=== PATIENT | female | born 1965 | race Caucasian/White ===

== ENCOUNTER 2018-08-04 10:24 | Emergency (ER) | payer MEDICAID ==
[~2018-08-04] VITALS: Ht 152.4 cm; Wt 42.6 kg
[2018-08-04] MEDS ORDERED: IV NORMAL SALINE 1000 ML BAG IV ONE (10:30)
[2018-08-04] MEDS ORDERED: ONDANSETRON 4 MG/2 ML VIAL IV ONE (10:30)
[2018-08-04 10:44] LABS: BASOPHILS % (AUTO) 0.6 % (0.0-2.0); EOSINOPHILS % (AUTO) 0.2 % (0.0-7.0); HEMATOCRIT 44.1 % (31.2-41.9); HEMOGLOBIN 14.6 g/dL (10.9-14.3); LYMPHOCYTES # (AUTO) 1.3 K/uL (20.0-40.0); MEAN CORPUSCULAR HEMOGLOBIN 29.9 uug (24.7-32.8); MEAN CORPUSCULAR HGB CONC 33 g/dL (32.3-35.6); MEAN CORPUSCULAR VOLUME 90.1 fL (75.5-95.3); MONOCYTES # (AUTO) 0.3 K/uL (2.0-10.0); MONOCYTES % (AUTO) 5.1 % (0.0-11.0); NEUTROPHILS # (AUTO) 4.7 K/uL (1.8-8.9); NEUTROPHILS % (AUTO) 73.1 % (38.5-71.5); PLATELET COUNT (AUTO) 171 K/uL (179-408); RED BLOOD CELL COUNT(AUTO) 4.89 MIL/uL (3.63-4.92); WHITE BLOOD COUNT (AUTO) 6.4 K/uL (3.8-11.8)
[2018-08-04] MEDS ORDERED: ONDANSETRON 4 MG/2 ML VIAL ONE (10:46)
[2018-08-04 10:52] LABS: CARBON DIOXIDE 30 mmol/L (21-32); CHLORIDE 101 mmol/L (98-107); CREATININE 0.2 mg/dL (0.6-1.3); GLUCOSE 98 mg/dL (74-106); POTASSIUM 3.8 mmol/L (3.5-5.1); UREA NITROGEN, BLOOD 12 mg/dL (7-18)
[2018-08-04 10:58] LABS: ALANINE AMINOTRANSFERASE 21 U/L (14-59); ALKALINE PHOSPHATASE 59 U/L (50-136); ASPARTATE AMINOTRANSFERASE 18 U/L (15-37); BILIRUBIN,DIRECT 0.1 mg/dL (0.0-0.2); BILIRUBIN,TOTAL 0.4 mg/dL (0.2-1.0); LIPASE 78 U/L (73-393); TOTAL PROTEIN, SERUM 7.1 g/dL (6.4-8.2)
[2018-08-04 11:18] LABS: *BILIRUBIN,URIN NEGATIVE (NEGATIVE); *BLOOD, URINE NEGATIVE (NEGATIVE); *CLARITY,URINE CLEAR (CLEAR); *COLOR,URINE YELLOW (YELLOW); *KETONES,URINE 2+ (NEGATIVE); *UROBILINOGEN,URINE 0.2 E.U./dl (NORMAL); LEUKOCYTE ESTERASE ,URINE NEGATIVE (NEGATIVE); NITRITE, URINE NEGATIVE (NEGATIVE); UGLUCOSE NEGATIVE (NEGATIVE)
[2018-08-04 11:24] LABS: BACTERIA,URINE FEW /HPF (NONE SEEN); RBC,URINE NONE SEEN /HPF (0-3); SQUAMOUS EPITHELIAL CELL,UR FEW /HPF (NONE SEEN); WBC,URINE NONE SEEN /HPF (0-3)
[2018-08-04] MEDS ORDERED: KETOROLAC TROMETHAMINE 15 MG INJ ONE (11:58)
[2018-08-04] MEDS ORDERED: KETOROLAC TROMETHAMINE 15 MG INJ IVP ONE (12:00)
--- NOTE | 2018-08-04 12:00 | NUR ---
IV removed. Catheter intact and site benign. Pressure and 4x4 gauze applied to site. No bleeding noted.
--- NOTE | 2018-08-04 12:00 | NUR ---
Patient discharged to home in stable conditon with family. Written and verbal after care instructions given. Patient verbalizes understanding of instructions. Stressed follow up with pmd or return to ER for worsening s/s.
[2018-08-04 12:02] VITALS: BP 114/73
== END 2018-08-04 12:02 | disposition home or self-care (01) ==
LOC: ER 10:24 → EDBD 10:24 → ER 12:02
DX: R11.10 Vomiting, unspecified (principal); R51 Headache; Z88.8 Allergy status to other drugs, medicaments and biological substances
CPT/HCPCS: 36415; 70450; 80048; 80076; 81001; 83690; 85025; 96361; 96374; 96375; 99284; J1885; J2405; A4663; J7030

== ENCOUNTER 2018-10-27 11:56 | Emergency (ER) | payer MEDICAID ==
[~2018-10-27] VITALS: Ht 152.4 cm; Wt 42.6 kg
[2018-10-27 12:53] VITALS: BP 98/62
== END 2018-10-27 12:56 | disposition home or self-care (01) ==
LOC: ER 12:00
DX: S92.512A Displaced fracture of proximal phalanx of left lesser toe(s), initial encounter for closed fracture (principal); Z88.8 Allergy status to other drugs, medicaments and biological substances; W22.8XXA Striking against or struck by other objects, initial encounter; Y93.89 Activity, other specified; Y92.89 Other specified places as the place of occurrence of the external cause; Y99.8 Other external cause status
CPT/HCPCS: 73660; A4663

== ENCOUNTER 2018-11-07 22:34 | Emergency (ER) | payer MEDICAID ==
[~2018-11-07] VITALS: Ht 157.5 cm; Wt 39.9 kg
--- NOTE | 2018-11-07 22:54 | NUR ---
Dr. Camarillo at bedside
[2018-11-07] MEDS ORDERED: IV NORMAL SALINE 1000 ML BAG IV ONE (23:00)
[2018-11-07] MEDS ORDERED: FAMOTIDINE. 20 MG/2 ML VIAL IV ONE ×2 (23:00→23:15)
[2018-11-07] MEDS ORDERED: ONDANSETRON 4 MG/2 ML VIAL IV ONE (23:00)
[2018-11-07] MEDS ORDERED: ONDANSETRON 4 MG/2 ML VIAL ONE (23:14)
[2018-11-07 23:15] LABS: BASOPHILS # (AUTO) 0.1 K/uL (0.0-8.0); BASOPHILS % (AUTO) 0.8 % (0.0-2.0); EOSINOPHILS % (AUTO) 0.4 % (0.0-7.0); HEMOGLOBIN 13.6 g/dL (10.9-14.3); LYMPHOCYTES # (AUTO) 2.5 K/uL (20.0-40.0); LYMPHOCYTES % (AUTO) 29.1 % (20.5-51.5); MEAN CORPUSCULAR HEMOGLOBIN 30.5 uug (24.7-32.8); MEAN CORPUSCULAR HGB CONC 34 g/dL (32.3-35.6); MEAN CORPUSCULAR VOLUME 89.7 fL (75.5-95.3); MONOCYTES # (AUTO) 0.8 K/uL (2.0-10.0); MONOCYTES % (AUTO) 9.3 % (0.0-11.0); NEUTROPHILS # (AUTO) 5.2 K/uL (1.8-8.9); NEUTROPHILS % (AUTO) 60.4 % (38.5-71.5); PLATELET COUNT (AUTO) 212 K/uL (179-408); RED BLOOD CELL COUNT(AUTO) 4.46 MIL/uL (3.63-4.92); WHITE BLOOD COUNT (AUTO) 8.6 K/uL (3.8-11.8)
[2018-11-07 23:27] LABS: ALANINE AMINOTRANSFERASE 16 U/L (14-59); ALKALINE PHOSPHATASE 55 U/L (50-136); ASPARTATE AMINOTRANSFERASE 14 U/L (15-37); BILIRUBIN,DIRECT 0.2 mg/dL (0.0-0.2); BILIRUBIN,TOTAL 0.7 mg/dL (0.2-1.0); CARBON DIOXIDE 29 mmol/L (21-32); CHLORIDE 101 mmol/L (98-107); CREATININE 0.4 mg/dL (0.6-1.3); GLUCOSE 125 mg/dL (74-106); LIPASE 70 U/L (73-393); POTASSIUM 3.2 mmol/L (3.5-5.1); TOTAL PROTEIN, SERUM 6.9 g/dL (6.4-8.2); UREA NITROGEN, BLOOD 5 mg/dL (7-18)
[2018-11-08] MEDS ORDERED: KETOROLAC TROMETHAMINE 15 MG INJ ONE (00:22)
[2018-11-08] MEDS ORDERED: KETOROLAC TROMETHAMINE 15 MG INJ IVP ONE (00:30)
--- NOTE | 2018-11-08 00:37 | NUR ---
Patient discharged to home in stable conditon. Written and verbal after care instructions given. Patient verbalizes understanding of instructions. patient self ambulatory with mother at side with steady gait. patient denies any nausea/discomfort. Patient went home with all belongings and exit care package.
[2018-11-08 00:40] VITALS: BP 112/81
== END 2018-11-08 00:35 | disposition home or self-care (01) ==
LOC: ER 22:36
DX: R11.2 Nausea with vomiting, unspecified (principal); F41.9 Anxiety disorder, unspecified; Z88.8 Allergy status to other drugs, medicaments and biological substances
CPT/HCPCS: 36415; 80048; 80076; 83690; 85025; 96361; 96374; 96375 ×2; 99283; J1885; J2405; J3490; A4663; J7030

== ENCOUNTER 2019-03-04 12:27 | Emergency (ER) | payer MEDICAID ==
[~2019-03-04] VITALS: Ht 149.9 cm; Wt 41.4 kg
--- NOTE | 2019-03-04 12:49 | NUR ---
PT WAS EVALUATED BY DR REED. PT WAS D/C'd TO HOME. D/C INSTRUCTIONS GIVEN TO THE PT.
[2019-03-04 12:50] VITALS: BP 128/78
== END 2019-03-04 12:50 | disposition home or self-care (01) ==
LOC: ER 12:27
DX: J40 Bronchitis, not specified as acute or chronic (principal); Z88.8 Allergy status to other drugs, medicaments and biological substances
CPT/HCPCS: A4663

== ENCOUNTER 2019-03-12 13:59 | Emergency (ER) | payer MEDICAID ==
[~2019-03-12] VITALS: Ht 149.9 cm; Wt 41.3 kg
[2019-03-12] MEDS: IV NORMAL SALINE 1000 ML BAG IV ONE (14:33)
[2019-03-12] MEDS ORDERED: HYDROMORPHONE 1 MG/1 ML DISP.SYRIN ONE (14:35)
[2019-03-12] MEDS ORDERED: ONDANSETRON 4 MG/2 ML VIAL ONE (14:35)
[2019-03-12] MEDS: HYDROMORPHONE 1 MG/1 ML DISP.SYRIN IV ONE (14:44)
[2019-03-12] MEDS: ONDANSETRON 4 MG/2 ML VIAL IV ONE (14:44)
--- NOTE | 2019-03-12 14:53 | NUR ---
PATIENT WAS SEEN BY MD. IV PLACED, FLUIDS AND MEDS GIVEN. PATIENT STATES PAIN IN HEAD AND NAUSEA HAVE DIMINISHED.
== END 2019-03-12 15:33 | disposition home or self-care (01) ==
LOC: ER 13:59
DX: R51 Headache (principal); R53.1 Weakness; K21.9 Gastro-esophageal reflux disease without esophagitis; Z88.8 Allergy status to other drugs, medicaments and biological substances
CPT/HCPCS: 96374; 96375; 99283; J1170; J2405; A4663; J7030

== ENCOUNTER 2019-03-13 15:27 | Emergency (ER) | payer MEDICAID ==
[~2019-03-13] VITALS: Ht 149.9 cm; Wt 41.3 kg
--- NOTE | 2019-03-13 16:05 | NUR ---
CARLTON SANCHEZ AT BEDSIDE FOR MSE.
[2019-03-13] MEDS ORDERED: ONDANSETRON 4 MG/2 ML VIAL ONE (16:07)
[2019-03-13] MEDS ORDERED: KETOROLAC TROMETHAMINE 30 MG INJ ONE (16:07)
[2019-03-13] MEDS ORDERED: ONDANSETRON 4 MG/2 ML VIAL IV ONE (16:15)
[2019-03-13] MEDS ORDERED: KETOROLAC TROMETHAMINE 30 MG INJ IVP ONE (16:15)
[2019-03-13] MEDS ORDERED: IV NORMAL SALINE 1000 ML BAG IV ONE (16:15)
[2019-03-13 16:24] LABS: *BILIRUBIN,URIN NEGATIVE (NEGATIVE); *CLARITY,URINE CLEAR (CLEAR); *COLOR,URINE YELLOW (YELLOW); *KETONES,URINE 2+ (NEGATIVE); *UROBILINOGEN,URINE 0.2 E.U./dl (NORMAL); LEUKOCYTE ESTERASE ,URINE NEGATIVE (NEGATIVE); NITRITE, URINE NEGATIVE (NEGATIVE); UGLUCOSE NEGATIVE (NEGATIVE)
[2019-03-13 16:28] LABS: BASOPHILS % (AUTO) 0.5 % (0.0-2.0); EOSINOPHILS % (AUTO) 0.3 % (0.0-7.0); HEMATOCRIT 42.8 % (31.2-41.9); HEMOGLOBIN 14.4 g/dL (10.9-14.3); LYMPHOCYTES # (AUTO) 1.8 K/uL (20.0-40.0); LYMPHOCYTES % (AUTO) 27.3 % (20.5-51.5); MEAN CORPUSCULAR HEMOGLOBIN 30.8 uug (24.7-32.8); MEAN CORPUSCULAR HGB CONC 34 g/dL (32.3-35.6); MEAN CORPUSCULAR VOLUME 91.8 fL (75.5-95.3); MONOCYTES # (AUTO) 0.4 K/uL (2.0-10.0); MONOCYTES % (AUTO) 5.9 % (0.0-11.0); NEUTROPHILS # (AUTO) 4.4 K/uL (1.8-8.9); PLATELET COUNT (AUTO) 180 K/uL (179-408); RED BLOOD CELL COUNT(AUTO) 4.66 MIL/uL (3.63-4.92); WHITE BLOOD COUNT (AUTO) 6.7 K/uL (3.8-11.8)
[2019-03-13 16:30] LABS: *BLOOD, URINE TRACE (NEGATIVE)
[2019-03-13 16:31] LABS: MUCUS,URINE FEW /LPF (0-FEW); RBC,URINE 0-3 /HPF (0-3); SQUAMOUS EPITHELIAL CELL,UR FEW /HPF (NONE SEEN); WBC,URINE 0-3 /HPF (0-3)
[2019-03-13 16:32] LABS: CARBON DIOXIDE 30 mmol/L (21-32); CHLORIDE 98 mmol/L (98-107); CREATININE 0.4 mg/dL (0.6-1.3); GLUCOSE 100 mg/dL (74-106); POTASSIUM 3.6 mmol/L (3.5-5.1); UREA NITROGEN, BLOOD 5 mg/dL (7-18)
[2019-03-13 16:38] LABS: ALANINE AMINOTRANSFERASE 23 U/L (14-59); ALKALINE PHOSPHATASE 67 U/L (50-136); ASPARTATE AMINOTRANSFERASE 18 U/L (15-37); BILIRUBIN,DIRECT 0.1 mg/dL (0.0-0.2); BILIRUBIN,TOTAL 0.4 mg/dL (0.2-1.0); LIPASE 76 U/L (73-393); TOTAL PROTEIN, SERUM 7.3 g/dL (6.4-8.2)
[2019-03-13] MEDS ORDERED: PANTOPRAZOLE SODIUM 40 MG VIAL IV ONE (16:45)
[2019-03-13] MEDS ORDERED: PANTOPRAZOLE SODIUM 40 MG VIAL ONE (16:49)
--- NOTE | 2019-03-13 17:27 | NUR ---
Patient discharged to home in stable conditon. Written and verbal after care instructions given. Patient verbalizes understanding of instructions. ALL BELONGINGS W/ PT. PT SELF-AMBULATED W/O DIFFICULTY. 20G IV ACCESS IN RAC REMOVED PRIOR TO D/C - INNER CANNULA INTACT.
[2019-03-13 17:28] VITALS: BP 106/77
== END 2019-03-13 17:35 | disposition home or self-care (01) ==
LOC: ER 15:30
DX: R11.2 Nausea with vomiting, unspecified (principal); R10.13 Epigastric pain; K21.9 Gastro-esophageal reflux disease without esophagitis; Z88.8 Allergy status to other drugs, medicaments and biological substances
CPT/HCPCS: 36415; 71045; 74176; 80048; 80076; 81000; 81001; 83690; 84484; 85025; 85730; 87086; 93005; 96361; 96374; 96375; 99284; C9113; J1885; J2405; 70030-TC; A4663; J7030

== ENCOUNTER 2024-07-13 06:07 | Emergency (ER) | payer MEDICAID ==
[~2024-07-13] VITALS: Ht 142.2 cm; Wt 44.0 kg
[2024-07-13] MEDS ORDERED: ONDANSETRON 4 MG/2 ML VIAL ONE ×2 (06:18→07:14)
[2024-07-13] MEDS ORDERED: FAMOTIDINE. 20 MG/2 ML VIAL IV ONE (06:18)
[2024-07-13] MEDS: FAMOTIDINE. 20 MG/2 ML VIAL IV ONE (06:28)
[2024-07-13] MEDS: ONDANSETRON 4 MG/2 ML VIAL IV ONE ×2 (06:28→07:23)
[2024-07-13] MEDS ORDERED: KETOROLAC TROMETHAMINE 15 MG INJ ONE (06:41)
[2024-07-13] MEDS: KETOROLAC TROMETHAMINE 15 MG INJ IVP ONE (06:46)
[2024-07-13 06:52] LABS: BASOPHILS % (AUTO) 0.2 % (0.0-2.0); HEMATOCRIT 38.1 % (31.2-41.9); HEMOGLOBIN 13.6 g/dL (10.9-14.3); LYMPHOCYTES # (AUTO) 0.9 K/uL (0.8-4.8); LYMPHOCYTES % (AUTO) 11.6 % (20.5-51.5); MEAN CORPUSCULAR HEMOGLOBIN 31.3 uug (24.7-32.8); MEAN CORPUSCULAR HGB CONC 36 g/dL (32.3-35.6); MONOCYTES # (AUTO) 0.8 K/uL (0.1-1.30); MONOCYTES % (AUTO) 10.9 % (0.0-11.0); NEUTROPHILS % (AUTO) 77.3 % (38.5-71.5); PLATELET COUNT (AUTO) 142 K/uL (179-408); RED BLOOD CELL COUNT(AUTO) 4.33 MIL/uL (3.63-4.92); RED CELL DISTRIBUTION WIDTH 13.7 % (12.3-17.7); WHITE BLOOD COUNT (AUTO) 7.7 K/uL (3.8-11.8)
[2024-07-13 07:00] LABS: CALCIUM 9.1 mg/dL (8.5-10.1); CARBON DIOXIDE 29 mmol/L (21-32); CHLORIDE 93 mmol/L (98-107); CREATININE 0.4 mg/dL (0.6-1.3); GLUCOSE 105 mg/dL (74-106); POTASSIUM 3.5 mmol/L (3.5-5.1); SODIUM SERUM 129 mmol/L (136-145); UREA NITROGEN, BLOOD 5 mg/dL (7-18)
[2024-07-13 07:03] LABS: DIFFERENTIAL COMMENT 1
[2024-07-13 07:06] LABS: ALANINE AMINOTRANSFERASE 21 U/L (14-59); ALBUMIN 3.8 g/dL (3.4-5.0); ALKALINE PHOSPHATASE 56 U/L (50-136); ASPARTATE AMINOTRANSFERASE 20 U/L (15-37); BILIRUBIN,DIRECT 0.2 mg/dL (0.0-0.2); BILIRUBIN,TOTAL 0.4 mg/dL (0.2-1.0); LIPASE 35 U/L (16-77); TOTAL PROTEIN, SERUM 7.1 g/dL (6.4-8.2)
[2024-07-13] MEDS: IV NORMAL SALINE 1000 ML BAG IV ONE (07:23)
[2024-07-13] MEDS ORDERED: PROM118S5 PO (08:48)
[2024-07-13] MEDS ORDERED: AZIT500T PO (08:48)
[2024-07-13 09:10] VITALS: BP 106/71; O2SAT 99
== END 2024-07-13 09:11 | disposition home or self-care (01) ==
LOC: ER 06:14
DX: R11.2 Nausea with vomiting, unspecified (principal); R05.9 Cough, unspecified; R06.00 Dyspnea, unspecified; R07.9 Chest pain, unspecified; R51.9 Headache, unspecified; K21.9 Gastro-esophageal reflux disease without esophagitis; Z86.69 Personal history of other diseases of the nervous system and sense organs; Z88.8 Allergy status to other drugs, medicaments and biological substances
CPT/HCPCS: 80076; 80048; 83690; 85025; 36415; 71045; 99284; 96361; 96374; 96375; 96376; J1308; J1885; J2405 ×2; J7040; A4606; A4663

== ENCOUNTER 2024-10-18 17:40 | Emergency (ER) | payer MEDICAID ==
[~2024-10-18] VITALS: Ht 152.4 cm; Wt 45.4 kg
[~2024-10-18 17:40] MED LIST: AZIT500T PO; PROM118S5 PO
[2024-10-18] MEDS ORDERED: METO-356 PO (18:00)
[2024-10-18] MEDS ORDERED: OMEP40CA21 PO (18:00)
[2024-10-18] MEDS ORDERED: MAG HYDROX/AL HYDROX/SIMETH 30 ML LIQUID UDC ONE (18:25)
[2024-10-18] MEDS ORDERED: ONDANSETRON 4 MG/2 ML VIAL ONE (18:25)
[2024-10-18] MEDS ORDERED: LIDOCAINE VISCUS 2% 15 ML UDC ONE (18:25)
[2024-10-18] MEDS ORDERED: PANTOPRAZOLE SODIUM 40 MG VIAL ONE (18:25)
[2024-10-18] MEDS ORDERED: HYDROMORPHONE 1 MG/1 ML DISP.SYRIN ONE (18:26)
[2024-10-18 18:28] LABS: PLATELET COUNT (AUTO) 177 K/uL (179-408); RED BLOOD CELL COUNT(AUTO) 4.34 MIL/uL (3.63-4.92); RED CELL DISTRIBUTION WIDTH 13.9 % (12.3-17.7); WHITE BLOOD COUNT (AUTO) 6.6 K/uL (3.8-11.8)
[2024-10-18 18:36] LABS: CREATININE < 0.2 mg/dL (0.6-1.3); SODIUM SERUM 133 mmol/L (136-145); UREA NITROGEN, BLOOD 8 mg/dL (7-18)
[2024-10-18] MEDS: HYDROMORPHONE 1 MG/1 ML DISP.SYRIN IV ONE (18:37)
[2024-10-18] MEDS: IV NS 1000 ML 1,000 ML IV ONE (18:37)
[2024-10-18] MEDS: PANTOPRAZOLE SODIUM 40 MG VIAL IV ONE (18:37)
[2024-10-18] MEDS: LIDOCAINE VISCUS 2% 15 ML UDC MM ONE (18:37)
[2024-10-18] MEDS: MAG HYDROX/AL HYDROX/SIMETH 30 ML LIQUID UDC PO ONE (18:37)
[2024-10-18] MEDS: ONDANSETRON 4 MG/2 ML VIAL IV ONE (18:37)
[2024-10-18 18:41] LABS: ASPARTATE AMINOTRANSFERASE 16 U/L (15-37); TOTAL PROTEIN, SERUM 6.7 g/dL (6.4-8.2)
[2024-10-18 18:51] VITALS: BP 127/95
[2024-10-18] MEDS ORDERED: FAMO40TA7 PO (19:25)
[2024-10-18] MEDS ORDERED: SUCR1ORA4 PO (19:25)
[2024-10-18 19:46] VITALS: BP 127/95; TEMP 98; O2SAT 98
== END 2024-10-18 19:48 | disposition home or self-care (01) ==
LOC: ER 17:50
DX: R51.9 Headache, unspecified (principal); R11.2 Nausea with vomiting, unspecified; E86.0 Dehydration; K21.9 Gastro-esophageal reflux disease without esophagitis; Z79.899 Other long term (current) drug therapy; Z88.8 Allergy status to other drugs, medicaments and biological substances
CPT/HCPCS: 99284; 96374; 96375; 96361; 80076; 80048; 85025; 84484; 36415; 93005; J2405; J2470; J1171; J7040; A4606; A4663